=== PATIENT | female | born 1960 | race Caucasian/White ===

== ENCOUNTER 2016-10-23 10:57 | Emergency (ER) | payer OTHER ==
[2016-10-23 14:38] LABS: HEMOGLOBIN 14.5 gm/dl (12.3-15.3); RED BLOOD COUNT 4.81 M/UL (4.00-5.10); WHITE BLOOD COUNT 7.3 K/UL (4.5-11.0)
[2016-10-23 15:03] LABS: BUN/CREATININE RATIO 28 (0-10)
== END 2016-10-23 18:56 | disposition home or self-care (01) ==
LOC: ER1 10:57
PROVIDERS: Emergency Medicine
DX: K46.9 Unspecified abdominal hernia without obstruction or gangrene (principal); Z88.0 Allergy status to penicillin; Z88.2 Allergy status to sulfonamides
CPT/HCPCS: 36415; 71020; 80053; 81001; 82550; 82553; 83605; 83690; 83874; 84484; 85025; 87086; 96361; 96374; 99284; J7050; Q9962

== ENCOUNTER → 2021-03-09 | Day surgery (SDC) | payer OTHER ==
[~2021-03-09] MED LIST: ALENDRONATE SOD35 MG PO; ATORVASTATIN CA10 MG PO; CELEXA 20MG TAB20 MG PO; CYANOCOBAL1000 MCG/1 INJ; FAMOTIDINE20 MG PO; FLONASE 0.05% N16 GM; GABAPENTIN100 MG PO; GLUCOPHAGE 500500 MG PO; LEVOTHYROXINE125 MCG PO; LISINOPRIL20 MG PO; MONTELUKAST SOD10 MG PO; NAPROXEN500 MG PO; VENTOLIN HFA 66.7 GM INH; VITAMIN D21250 MCG PO
== END | disposition home or self-care (01) ==
LOC: OR 06:43
DX: K22.2 Esophageal obstruction (principal); K29.50 Unspecified chronic gastritis without bleeding; K21.00 Gastro-esophageal reflux disease with esophagitis, without bleeding; K22.70 Barrett's esophagus without dysplasia; K22.8 Other specified diseases of esophagus; R13.14 Dysphagia, pharyngoesophageal phase; I10 Essential (primary) hypertension; E11.40 Type 2 diabetes mellitus with diabetic neuropathy, unspecified; J43.9 Emphysema, unspecified; Z88.2 Allergy status to sulfonamides; Z88.0 Allergy status to penicillin; E66.01 Morbid (severe) obesity due to excess calories; Z68.41 Body mass index [BMI] 40.0-44.9, adult; Z20.822 Contact with and (suspected) exposure to COVID-19; K29.80 Duodenitis without bleeding
CPT/HCPCS: 82962; J2704; J7040

== ENCOUNTER → 2021-03-14 | Outpatient (CLI) | payer OTHER | LOC: EXRD 02-21 09:30 | DX: Z78.0 Asymptomatic menopausal state (principal); M85.89 Other specified disorders of bone density and structure, multiple sites | CPT/HCPCS: 77080 ==

== ENCOUNTER 2021-07-24 11:28 | Emergency (ER) | payer OTHER ==
[2021-07-24 12:13] LABS: HEMOGLOBIN 14.3 gm/dl (12.3-15.3); RED BLOOD COUNT 4.82 M/UL (4.00-5.10)
[2021-07-24 12:44] LABS: BUN/CREATININE RATIO 18 (0-10)
[2021-07-24] MEDS ORDERED: OMNICEF 300 MG300 MG PO (17:11)
[2021-07-24] MEDS ORDERED: ZITHROMAX250 MG PO (17:11)
== END 2021-07-24 17:47 | disposition home or self-care (01) ==
LOC: ER1 11:28
PROVIDERS: Emergency Medicine
DX: J18.9 Pneumonia, unspecified organism (principal); Z20.822 Contact with and (suspected) exposure to COVID-19; E78.5 Hyperlipidemia, unspecified; E11.9 Type 2 diabetes mellitus without complications; K21.9 Gastro-esophageal reflux disease without esophagitis; Z88.0 Allergy status to penicillin; Z88.2 Allergy status to sulfonamides
CPT/HCPCS: 71045; 80053; 82550; 82553; 83874; 84484; 85025; 85379; 93005; 96374; 99285; J0696; Q9967; U0002

== ENCOUNTER → 2021-08-18 | Outpatient (CLI) | payer OTHER ==
[~2021-08-18] MED LIST changes: +OMNICEF 300 MG300 MG PO; +ZITHROMAX250 MG PO
== END ==
LOC: EXRD 11:23
DX: I51.89 Other ill-defined heart diseases (principal)
CPT/HCPCS: 71046

== ENCOUNTER → 2021-12-29 | Outpatient (CLI) | payer OTHER ==
[2021-12-29 13:59] LABS: HEMOGLOBIN 13.6 gm/dl (12.3-15.3); RED BLOOD COUNT 4.36 M/UL (4.00-5.10); WHITE BLOOD COUNT 6.5 K/UL (4.5-11.0)
[2021-12-29 14:15] LABS: BUN/CREATININE RATIO 24 (0-10)
[2021-12-30 10:14] LABS: CREATININE, URINE 102.1 mg/dL (Not Estab.)
== END ==
LOC: MAMO 13:09
PROVIDERS: Nurse Practitioner Family
DX: Z12.31 Encounter for screening mammogram for malignant neoplasm of breast (principal); E11.9 Type 2 diabetes mellitus without complications; E78.5 Hyperlipidemia, unspecified; E03.9 Hypothyroidism, unspecified; E55.9 Vitamin D deficiency, unspecified; E53.8 Deficiency of other specified B group vitamins
CPT/HCPCS: 36415; 77063; 77067; 80053; 80061; 82043; 82570; 82607; 82746; 84439; 84443; 85025

== ENCOUNTER → 2022-03-23 | Outpatient (CLI) | payer OTHER | LOC: KOH-I 08:34 | DX: S00.93XA Contusion of unspecified part of head, initial encounter (principal); W20.8XXA Other cause of strike by thrown, projected or falling object, initial encounter; W18.30XA Fall on same level, unspecified, initial encounter | CPT/HCPCS: 70450; 76882 ==